=== PATIENT | female | born 1955 | race Caucasian/White ===

== ENCOUNTER 2024-03-10 12:58 | Emergency (ER) | payer OTHER, SELFPAY ==
[2024-03-10 13:10] VITALS: BP 155/70
--- NOTE | 2024-03-10 13:16 | ED.MUSCINJ ---
HPI-Injury
<Lam Tolentino PA-C - Last Filed: 03/10/24 13:17>
General
Chief Complaint: Musculo-Skeletal Complaint
Time Seen by Provider: 03/10/24 14:25
<Ernestolopez Miramontes DO Mabel - Last Filed: 03/10/24 15:14>
History of Present Illness-Injury
Is pt an associate of [facility]?: No
Initial Injury comments:
TIME OF INITIAL ENCOUNTER: 2:30 PM
HPI: The patient presents with right shoulder pain. This occurred after a fall when she was removing her boots 10 days ago. She takes tramadol chronically but she has not been able to sleep due to the pain. She is known to [facility].
EXAM:
GENERAL: Well appearing in no distress
HEENT: Moist oral mucosa
NEUROLOGIC: Excellent distal strength all extremities, no obvious coordination deficits
PSYCHIATRIC: Appropriate mental status, normal insight and judgement
EXTREMITIES: There is tenderness at the right AC region and less so at the right proximal humerus, there is no clinical evidence for dislocation
SKIN: No rash, no lesions
NUMBER AND COMPLEXITY OF PROBLEMS ADDRESSED AT THE ENCOUNTER
� Chronic conditions affecting care: Scoliosis, back surgeries
� Acute Exacerbation and/or Progression of Chronic Illness: This is an acute/subacute problem
� Differential Diagnosis includes: Proximal humerus fracture, AC joint separation, dislocation
AMOUNT AND/OR COMPLEXITY OF DATA TO BE REVIEWED AND ANALYZED
� I performed an independent evaluation of and my interpretation is:
EKG:
CT:
X-rays: I see evidence of right AC separation, no dislocation, no definite fracture of the proximal humerus or clavicle
Laboratory Studies:
Other:
� Review of other/old records: No old records available for review in [facility]
� Clinical information was obtained by an independent historian: None needed
� Prescriptions/Medications Considered but not given:
� Further testing considered but not performed:
RISK OF COMPLICATIONS AND/OR MORBIDITY OR MORTALITY OF PATIENT MANAGEMENT
� Social determinants of health affecting care: Lives in [facility], care at [place]
� Discussion with other providers:
� Escalation of care including admission/observation vs risk of discharge considered: Will try a new sling as she states that the one she has was hurting her 'scoliosis', will give short course of narcotic analgesia more than
just the Ultram that she has already
ANY OTHER UPDATES:
I discussed findings with daughter at bedside prior to discharge
ED Provider Triage
<Lam Tolentino PA-C - Last Filed: 03/10/24 13:17>
-
Patient seen by provider in Triage?: Seen in Triage
68-year-old female presents complaining of right shoulder pain after fall she sustained on [address]. She was seen at an urgent care was diagnosed with a right shoulder dislocation. She was at [facility] and waited 9 hours in the
waiting room and decided to leave.
Patient is tender about the right shoulder. Hard to assess for any deformities through the clothing at triage. But x-rays were ordered.
Patient seen by healthcare provider at triage and warrants further assessment
Phy Exam
<Ernesto Monroe DO - Last Filed: 03/10/24 15:14>
Physical Exam
Physical Exam:
See HPI
Injury Course
<Lam Tolentino PA-C - Last Filed: 03/10/24 13:17>
Orders/Labs/Results
Orders:
Orders
03/10/24 13:15
CR Shoulder, Trauma - Right Urgent
Comment:
Reason For Exam: fall, pain
03/10/24 14:37
Sling Right-Treatment ONCE
<Ernesto Monroe DO - Last Filed: 03/10/24 15:14>
Orders/Labs/Results
Orders:
Orders
03/10/24 13:15
CR Shoulder, Trauma - Right Urgent
Comment:
Reason For Exam: fall, pain
03/10/24 14:37
Sling Right-Treatment ONCE
<Ernesto Monroe DO - Last Filed: 03/10/24 15:14>
*Critical Care Note
Total Time (30-74mins, 75-104mins- exclusive of procedures): Not Applicable
ED Attending Note
<Lam Tolentino PA-C - Last Filed: 03/10/24 13:17>
-
Portions of this chart may have been created with voice recognition software.� Occasional wrong word or��sound alike� substitutions may have occurred due to the inherent limitations of voice recognition software.
Discharge Plan
Departure
Patient Disposition: Home (Routine Discharge)
Date of Disposition: 03/10/24
Time of Disposition: 14:36
Patient with high blood pressure during this ER visit?: Yes
Discharge Problem:
AC separation
Instructions: shoulder, How to Use a Shoulder Sling
Prescriptions:
New
oxycodone-acetaminophen [Percocet] 5-325 mg tablet
1 tab PO Q8H PRN (Reason: Pain) Qty: 10 0RF
Activity Restrictions/Additional Instructions:
Follow-up with your orthopedic doctor at [place]. I am sending a prescription for a very short course of narcotic to help with pain but you cannot take Ultram when you take the stronger narcotic. If you take the narcotic I recommend taking
something like MiraLAX to prevent constipation. Return here if worse or other concerns.
Interventions
Interventions:
*Risk Screen - Suicide Last Done: 03/10/24 13:10
*General Assessment Last Done: 03/10/24 13:10
*Neglect/Abuse Screening Last Done: 03/10/24 13:10
*ED COVID-19 Vaccine History Last Done: 03/10/24 13:10
Discharge Date and Time
Print Language: GABONESE
== END 2024-03-10 15:50 | disposition home or self-care (01) ==
LOC: EMR 12:58
PROVIDERS: EMERGENCY PHYSICIAN Emergency Medicine; FAMILY PHYSICIAN Internal Medicine
DX: S43.101A Unspecified dislocation of right acromioclavicular joint, initial encounter (principal); W19.XXXA Unspecified fall, initial encounter
CPT/HCPCS: 99283; 73030